=== PATIENT | female | born 1950 | race American Indian/Alaskan Native ===

== ENCOUNTER 2019-08-09 05:21 | Emergency (ER) | payer MEDICARE ==
--- NOTE | 2019-08-09 05:57 | Cat Scan Report ---
CT HEAD WITHOUT CONTRAST INDICATION / CLINICAL INFORMATION: STROKE PROTOCOL!!! Difficulty speaking, weakness.. TECHNIQUE: All CT scans at this location are performed using CT dose reduction for ALARA by means of automated e xposure control. COMPARISON: None available. FINDINGS: HEMORRHAGE: There is a left thalamic hematoma measuring 2.3 x 2.0 x 2.4 cm with mild surrounding jasmyne a. Tiny punctate hyperdensity in the subcortical white matter of the right parietal lobe as seen on a xial series 2 image 17. EXTRA-AXIAL SPACES: Normal in size and morphology for the patient's age. VENTRICULAR SYSTEM: Normal in size and morphology for the patient's age. CEREBRAL PARENCHYMA: Extensive white matter hypodensities likely relate to microangiopathy. MIDLINE SHIFT OR HERNIATION: Minimal 3 mm [id number] shift of the midline adjacent to the left dre lamic hematoma. CEREBELLUM / BRAINSTEM: No significant abnormality. ORBITS: Normal as visualized. SOFT TISSUES of HEAD: No significant abnormality. CALVARIUM: No significant abnormality. PARANASAL SINUSES / MASTOID AIR CELLS: Normal as visualized. ADDITIONAL FINDINGS: None. IMPRESSION: 1. 2.4 cm left thalamic hematoma which could represent hypertensive hemorrhage. 2. Tiny punctate hyperdensity in the subcortical white matter of the right parietal lobe could also r epresent tiny hematoma. CRITICAL RESULT: Time of Discovery (STORAGE BATTERY INSPECTOR/CDT): 4:50 AM Time of Communication (STORAGE BATTERY INSPECTOR/CDT): 4:52 AM Licensed Practitioner Receiving Report: Dr. Garcia in the ED Read Back Performed: Yes. Signer Name: Wanda Thorpe MD Signed: 08/09/2019 5:52 AM Workstation Name: [id number]
--- NOTE | 2019-08-09 05:58 | Emergency Department Report ---
ED Neuro Deficit HPI - General Stated Complaint: POSS STROKE - History of Present Illness Initial Comments: [facility] Date of Service: 08/09/2019 05:18:38 Impression: L hemispheric ICH Comments/Sign-Out: 69 yo W on coumadin last known well at 3:00 when they went to bed who the found on the floor after hearing a loud noise from noise when she got up p/w R hemiparesis and R facial droop and slurred speech. Mechanism of Stroke: ICH Metrics: Last Known Well: 08/09/2019 04:40:00 [employer] Notification Time: 08/09/2019 05:18:38 Arrival Time: 08/09/2019 05:23:04 Stamp Time: 08/09/2019 05:18:38 Time First Login Attempt: 08/09/2019 05:22:00 Video Start Time: 08/09/2019 05:22:00 Symptoms: R sided weakness NIHSS Start Assessment Time: 08/09/2019 05:38:00 Patient is not a candidate for tPA. Patient was not deemed candidate for tPA thrombolytics because of AC and ICH. Video End Time: 08/09/2019 05:48:46 CT head was reviewed. Clinical Presentation is not Suggestive of Large Vessel Occlusive Disease ED Physician notified of diagnostic impression and management plan on 08/09/2019 05:48:45 Our recommendations are outlined below. Recommendations: Activate Stroke Protocol Admission/Order Set Stroke/Telemetry Floor Neuro Checks Bedside Swallow Eval DVT Prophylaxis IV Fluids, Normal Saline Head of Bed Below 30 Degrees Euglycemia and Avoid Hyperthermia (PRN Acetaminophen) Hold Antithrombotics for Now BP lowering Warfarin reversal STAT Nsx consult Routine Consultation with Inhouse Neurology for Follow up Care Sign Out: Discussed with Emergency Department Provider History of Present Illness: Patient is a 69 year old Female. Patient was brought by EMS for symptoms of R sided weakness 69 yo W on coumadin last known well at 3:00 when they went to bed who the found on the floor after hearing a loud noise from noise when she got up p/w R hemiparesis and R facial droop and slurred speech. CT head was reviewed. There is history of hemorrhagic complications or intracranial hemorrhage. There is history of Recent Anticoagulants. Examination: BP(229/101), 1A: Level of Consciousness - Alert; keenly responsive + 0 1B: Ask Month and Age - Could Not Answer Either Question Correctly + 2 1C: Blink Eyes & Squeeze Hands - Performs 1 Task + 1 2: Test Horizontal Extraocular Movements - Normal + 0 3: Test Visual Sales - Complete Hemianopia + 2 4: Test Facial Palsy (Use Grimace if Obtunded) - Partial paralysis (lower face) + 2 5A: Test Left Arm Motor Drift - No Drift for 10 Seconds + 0 5B: Test Right Arm Motor Drift - No Effort Against [place] + 3 6A: Test Left Leg Motor Drift - No Drift for 5 Seconds + 0 6B: Test Right Leg Motor Drift - Some Effort Against [place] + 2 7: Test Limb Ataxia (FNF/Heel-Limon) - No Ataxia + 0 8: Test Sensation - Mild-Moderate Loss: Can Sense Being Touched + 1 9: Test Language/Aphasia - Mild-Moderate Aphasia: Some Obvious Changes, Without Significant Limitation + 1 10: Test Dysarthria - Mild-Moderate Dysarthria: Slurring but can be understood + 1 11: Test Extinction/Inattention - No abnormality + 0 NIHSS Score: 15 Patient was informed the Neurology Consult would happen via TeleHealth consult by way of interactive audio and video telecommunications and consented to receiving care in this manner. Due to the immediate potential for life-threatening deterioration due to underlying acute neurologic illness, I spent 35 minutes providing critical care. This time includes time for face to face visit via telemedicine, review of medical records, imaging studies and discussion of findings with providers, the patient and/or family. Dr Edna Hester [facility] Case [id number] - Related Data Allergies/Adverse Reactions: Allergies Allergy/AdvReac Type Severity Reaction Status Date / Time Unable to Assess Allergy Verified 08/09/19 05:52 ED Review of Systems ROS: Stated complaint: POSS STROKE Other details as noted in HPI ED Neuro Physical Exam - General Suspected Stroke: Yes - NIHSS Assessment Interval: Baseline 1a. Level of Consciousness: alert/keenly responsive 1b. LOC Questions: answers no questions correctly 1c. LOC Commands: performs 1 task correctly 2. Best Gaze: normal 3. Visual: complete hemianopia 4. Facial Palsy: partial paralysis 5b. Motor Arm Right: no movement 5a. Motor Arm Left: no drift 6a. Motor Leg Left: no drift 6b. Motor Leg Right: some gravity effort 7. Limb Ataxia: absent 8. Sensory: mild/moderate sensory loss 9. Best Language: mild/moderate aphasia 10. Dysarthria: mild/moderate dysarthria 11. Extinction/Inattention: no abnormality Total Score: 16 Stroke Severity: Moderate to Severe Stroke Critical care attestation.: If time is entered above; I have spent that time in minutes in the direct care of this critically ill patient, excluding procedure time. ED Disposition Clinical Impression: Stroke (cerebrum) Disposition: OP ADMIT IP TO THIS HOSP Is pt being admited?: Yes Does the pt Need Aspirin: No Condition: Stable Referrals: PRIMARY CAREMD [Primary Care Provider] - 3-5 Days
[2019-08-09] MEDS ORDERED: niCARdipine 50 MG in SODIUM CHLORIDE 0.9% 250ML 230 ML IV SCH (06:00)
[2019-08-09 06:11] LABS: Basophils # (Auto) 0.1 K/mm3 (0.0-0.1); Basophils % (Auto) 1.9 % (0.0-1.8); Eosinophils # (Auto) 0.1 K/mm3 (0.0-0.4); Eosinophils % (Auto) 2.1 % (0.0-4.3); Hematocrit 38.3 % (30.3-42.9); Hemoglobin 13.2 gm/dl (10.1-14.3); Lymphocytes # (Auto) 2.1 K/mm3 (1.2-5.4); Lymphocytes % (Auto) 37.4 % (13.4-35.0); Mean Corpuscular HGB Conc 35 % (30-34); Mean Corpuscular Volume 86 fl (79-97); Monocytes # (Auto) 0.5 K/mm3 (0.0-0.8); Monocytes % (Auto) 8.1 % (0.0-7.3); Platelet Count 242 K/mm3 (140-440); Red Blood Count 4.48 M/mm3 (3.65-5.03); Red Cell Distribution Width 13.6 % (13.2-15.2)
--- NOTE | 2019-08-09 06:11 | Event Note ---
ED Screening Note Date of service: 08/09/19 Time: 06:06 ED Screening Note: 69-year-old female with history of hypertension, previous CVA with no residual deficits presents to ED with right-sided weakness. states they went to bed at 3 AM, patient was normal at that time. At around 4:30 AM heard patient fall. He went to check on her and she was on the floor, mumbling, not responding normally. EMS was called patient was found to have right-sided weakness. reports patient is currently on Coumadin because of her stroke. Patient is currently hypertensive, 220s/100s. Patient has weakness in the right arm and leg, right facial droop. GCS of 14. Patient seen and e xamined by tele-neurologist, NIH score of 15. Radiologist called, states CT Head shows left thalamic hemorrhage, 2.4 cm in size with minimal mass-effect and tiny right parietal hemorrhage. Patient is a [facility] patient. This initial assessment/diagnostic orders/clinical plan/treatment(s) is/are subject to change based on patients health status, clinical progression and re- assessment by fellow clinical providers in the ED. Further treatment and workup at subsequent clinical providers discretion. Patient/guardian urged not to elope from the ED as their condition may be serious if not clinically assessed and managed. Initial orders include: Stroke alert CT Head labs EKG Karlos newman
[2019-08-09 06:22] LABS: INR 2.32 (0.87-1.13)
[2019-08-09 06:23] LABS: Partial Thromboplastin Time 34.2 Sec. (24.2-36.6)
[2019-08-09 06:26] LABS: BUN/Creatinine Ratio 24; Blood Urea Nitrogen 19 mg/dL (7-17); Calcium 9.1 mg/dL (8.4-10.2); Hemolysis Index 13
[2019-08-09] MEDS ORDERED: PHYTONADIONE(ADULT ONLY) 10 MG in SODIUM CHLORIDE 0.9% 50 ML IV ONE (06:37)
[2019-08-09 06:42] LABS: Bilirubin,Urine NEG (Negative); Blood,Urine NEG (Negative); Color,Urine Colorless (Yellow); Urobilinogen,Urine < 2.0 mg/dL (<2.0)
[2019-08-09 06:56] LABS: Alanine Aminotransferase 10 units/L (7-56); Albumin 4.3 g/dL (3.9-5)
[2019-08-09 06:58] LABS: Bilirubin,Direct < 0.2 mg/dL (0-0.2)
--- NOTE | 2019-08-09 06:58 | XRay Report ---
CHEST 1 VIEW 08/09/2019 6:28 AM INDICATION / CLINICAL INFORMATION: hypertension. Right-sided weakness. COMPARISON: None available. FINDINGS: SUPPORT DEVICES: None. HEART / MEDIASTINUM: No significant abnormality. LUNGS / PLEURA: No significant pulmonary or pleural abnormality. No pneumothorax. ADDITIONAL FINDINGS: No significant additional findings. IMPRESSION: 1. No acute findings. Signer Name: Wanda Thorpe MD Signed: 08/09/2019 6:53 AM Workstation Name: [email or web address]
[2019-08-09] MEDS ORDERED: PROTHROMBIN HUMAN COMPLEX (PCC) PER 1 UNIT IV ONE (07:00)
--- NOTE | 2019-08-09 07:04 | Emergency Department Report ---
ED Neuro Deficit HPI - General Chief Complaint: Neuro Symptoms/Deficit Stated Complaint: POSS STROKE Time Seen by Provider: 08/09/19 06:19 Source: EMS Mode of arrival: Stretcher Limitations: Altered Mental Status - History of Present Illness Initial Comments: This is an unfortunate 69-year-old female who is on Coumadin and has a history of hypertension. I spoke to her . He is not aware of her compliance with her medication per se. He knows that she is on Coumadin. He states this is because she had a stroke in 2014. He denies knowledge of atrial fibrillation, DVT or pulmonary embolism. I am not sure her exact indication for anticoagulation. In any case she was at her ordinary state of health yesterday. She had a intracranial hemorrhage during the night. I am uncertain as to the exact time. The did find her on the floor with a katina-parous cyst. History per teleneuro: Comments/Sign-Out: 69 yo W on coumadin last known well at 3:00 when they went to bed who the found on the floor after hearing a loud noise from noise when she got up p/w R hemiparesis and R facial droop and slurred speech. Exam per teleneuro: Examination: BP(229/101), 1A: Level of Consciousness - Alert; keenly responsive + 0 1B: Ask Month and Age - Could Not Answer Either Question Correctly + 2 1C: Blink Eyes & Squeeze Hands - Performs 1 Task + 1 2: Test Horizontal Extraocular Movements - Normal + 0 3: Test Visual Sales - Complete Hemianopia + 2 4: Test Facial Palsy (Use Grimace if Obtunded) - Partial paralysis (lower face) + 2 5A: Test Left Arm Motor Drift - No Drift for 10 Seconds + 0 5B: Test Right Arm Motor Drift - No Effort Against [place] + 3 6A: Test Left Leg Motor Drift - No Drift for 5 Seconds + 0 6B: Test Right Leg Motor Drift - Some Effort Against [place] + 2 7: Test Limb Ataxia (FNF/Heel-Limon) - No Ataxia + 0 8: Test Sensation - Mild-Moderate Loss: Can Sense Being Touched + 1 9: Test Language/Aphasia - Mild-Moderate Aphasia: Some Obvious Changes, Without Significant Limitation + 1 10: Test Dysarthria - Mild-Moderate Dysarthria: Slurring but can be understood + 1 11: Test Extinction/Inattention - No abnormality + 0 NIHSS Score: 15 -: During the night Location: right face, right arm, right leg Presenting Symptoms: Present: Weak/Paralyzed One Side History of same: No Place: home Associated Symptoms: denies other symptoms (Has been unaware of any intercurrent problem) - Related Data Allergies/Adverse Reactions: Allergies Allergy/AdvReac Type Severity Reaction Status Date / Time Unable to Assess Allergy Verified 08/09/19 05:52 ED Review of Systems ROS: Stated complaint: POSS STROKE Other details as noted in HPI Comment: Unobtainable due to pts medical conditions ED Past Medical Hx - Past Medical History Hx Hypertension: Yes Hx CVA: Yes Hx Diabetes: Yes Hx GERD: Yes - Social History Smoking Status: Unknown if ever smoked Substance Use Type: None ED Neuro Physical Exam - General Limitations: Altered Mental Status General appearance: alert (Reasonably alert) Suspected Stroke: Yes - Head Head exam: Present: atraumatic - Eye Eye exam: Present: normal appearance - ENT ENT exam: Present: other (Facial asymmetry apparent) - Neck Neck exam: Absent: tenderness, meningismus - Respiratory Respiratory exam: Present: normal lung sounds bilaterally. Absent: respiratory distress - Cardiovascular Cardiovascular Exam: Present: regular rate, normal rhythm, normal heart sounds. Absent: systolic murmur, diastolic murmur - GI/Abdominal GI/Abdominal exam: Absent: soft, distended, tenderness - Extremities Exam Extremities exam: Present: normal inspection - Back Exam Back exam: Present: other (Did not view) - Neurological Exam Neurological exam: Present: altered, motor sensory deficit. Absent: CN II-XII intact - NIHSS Assessment Interval: Baseline 1a. Level of Consciousness: alert/keenly responsive 1b. LOC Questions: answers no questions correctly 1c. LOC Commands: performs 1 task correctly 2. Best Gaze: partial gaze palsy 3. Visual: complete hemianopia 4. Facial Palsy: partial paralysis 5b. Motor Arm Right: no gravity effort 5a. Motor Arm Left: no drift 6a. Motor Leg Left: no drift 6b. Motor Leg Right: no gravity effort 7. Limb Ataxia: absent 8. Sensory: mild/moderate sensory loss 9. Best Language: mild/moderate aphasia 10. Dysarthria: mild/moderate dysarthria 11. Extinction/Inattention: visual/tactile inattention Total Score: 18 Stroke Severity: Moderate to Severe Stroke - Psychiatric Psychiatric exam: Present: normal mood, flat affect - Skin Skin exam: Present: warm, dry, intact, normal color. Absent: rash ED Course Vital Signs 08/09/19 08/09/19 08/09/19 05:22 05:44 05:45 Temperature 97.6 F Pulse Rate Respiratory Rate Blood Pressure 229/101 O2 Sat by Pulse 96 97 Oximetry 08/09/19 08/09/19 08/09/19 06:01 06:15 06:31 Temperature Pulse Rate 63 62 70 Respiratory 14 12 12 Rate Blood Pressure 219/85 219/85 168/88 O2 Sat by Pulse 95 96 95 Oximetry - Reevaluation(s) Reevaluation #1: I discussed the need for K Centra and vitamin K with the pharmacist. She told me that they would send the medication to the emergency department stat. I spoke to the 's and apprised him of the situation, findings and transfer disposition. Dr. Garcia gave a report to [place]. Patient has been accepted by Adithya Antunez MD. She is stable for transfer. I informed the nurse to place the parameter for systolic blood pressure at 165 initially. Further blood pressure management per the neuro-steel box toe inserter. 08/09/19 07:11 08/09/19 07:12 - Lab Data Result diagrams: 08/09/19 05:54 08/09/19 05:54 Lab Results 08/09/19 08/09/19 08/09/19 Range/Units 05:54 05:54 05:54 WBC 5.6 (4.5-11.0) K/mm3 RBC 4.48 (3.65-5.03) M/mm3 Hgb 13.2 (10.1-14.3) gm/dl Hct 38.3 (30.3-42.9) % MCV 86 (79-97) fl MCH 30 (28-32) pg MCHC 35 H (30-34) % RDW 13.6 (13.2-15.2) % Plt Count 242 (140-440) K/mm3 Lymph % (Auto) 37.4 H (13.4-35.0) % [place] % (Auto) 8.1 H (0.0-7.3) % Eos % (Auto) 2.1 (0.0-4.3) % Baso % (Auto) 1.9 H (0.0-1.8) % Lymph # 2.1 (1.2-5.4) K/mm3 [place] # 0.5 (0.0-0.8) K/mm3 Eos # 0.1 (0.0-0.4) K/mm3 Baso # 0.1 (0.0-0.1) K/mm3 Seg Neutrophils % 50.5 (40.0-70.0) % Seg Neutrophils # 2.8 (1.8-7.7) K/mm3 PT 25.9 H (12.2-14.9) Sec. INR 2.32 H (0.87-1.13) APTT 34.2 (24.2-36.6) Sec. Sodium 142 (137-145) mmol/L Potassium 3.8 (3.6-5.0) mmol/L Chloride 104.6 (98-107) mmol/L Carbon Dioxide 22 (22-30) mmol/L Anion Gap 19 mmol/L BUN 19 H (7-17) mg/dL Creatinine 0.8 (0.7-1.2) mg/dL Estimated GFR > 60 ml/min BUN/Creatinine Ratio 24 % Glucose 111 H (65-100) mg/dL POC Glucose (70-105) Calcium 9.1 (8.4-10.2) mg/dL Total Bilirubin (0.1-1.2) mg/dL Direct Bilirubin (0-0.2) mg/dL Indirect Bilirubin mg/dL AST (5-40) units/L ALT (7-56) units/L Alkaline Phosphatase (35-129) units/L Troponin T < 0.010 (0.00-0.029) ng/mL NT-Pro-B Natriuret Pep (0-900) pg/mL Total Protein (6.3-8.2) g/dL Albumin (3.9-5) g/dL Albumin/Globulin Ratio % Urine Color (Yellow) Urine Turbidity (Clear) Urine pH (5.0-7.0) Ur Specific [place] (1.003-1.030) Urine Protein (Negative) mg/dL Urine Glucose (UA) (Negative) mg/dL Urine Ketones (Negative) mg/dL Urine Blood (Negative) Urine Nitrite (Negative) Urine Bilirubin (Negative) Urine Urobilinogen (<2.0) mg/dL Ur Leukocyte Esterase (Negative) Urine WBC (Auto) (0.0-6.0) /HPF Urine RBC (Auto) (0.0-6.0) /HPF U Epithel Cells (Auto) (0-13.0) /HPF 08/09/19 08/09/19 08/09/19 Range/Units 05:54 06:15 06:28 WBC (4.5-11.0) K/mm3 RBC (3.65-5.03) M/mm3 Hgb (10.1-14.3) gm/dl Hct (30.3-42.9) % MCV (79-97) fl MCH (28-32) pg MCHC (30-34) % RDW (13.2-15.2) % Plt Count (140-440) K/mm3 Lymph % (Auto) (13.4-35.0) % [place] % (Auto) (0.0-7.3) % Eos % (Auto) (0.0-4.3) % Baso % (Auto) (0.0-1.8) % Lymph # (1.2-5.4) K/mm3 [place] # (0.0-0.8) K/mm3 Eos # (0.0-0.4) K/mm3 Baso # (0.0-0.1) K/mm3 Seg Neutrophils % (40.0-70.0) % Seg Neutrophils # (1.8-7.7) K/mm3 PT (12.2-14.9) Sec. INR (0.87-1.13) APTT (24.2-36.6) Sec. Sodium (137-145) mmol/L Potassium (3.6-5.0) mmol/L Chloride (98-107) mmol/L Carbon Dioxide (22-30) mmol/L Anion Gap mmol/L BUN (7-17) mg/dL Creatinine (0.7-1.2) mg/dL Estimated GFR ml/min BUN/Creatinine Ratio % Glucose (65-100) mg/dL POC Glucose 94 (70-105) Calcium (8.4-10.2) mg/dL Total Bilirubin 0.30 (0.1-1.2) mg/dL Direct Bilirubin < 0.2 (0-0.2) mg/dL Indirect Bilirubin 0.1 mg/dL AST 18 (5-40) units/L ALT 10 (7-56) units/L Alkaline Phosphatase 47 (35-129) units/L Troponin T (0.00-0.029) ng/mL NT-Pro-B Natriuret Pep 74.22 (0-900) pg/mL Total Protein 8.1 (6.3-8.2) g/dL Albumin 4.3 (3.9-5) g/dL Albumin/Globulin Ratio 1.1 % Urine Color Colorless (Yellow) Urine Turbidity Clear (Clear) Urine pH 7.0 (5.0-7.0) Ur Specific [place] 1.008 (1.003-1.030) Urine Protein 30 mg/dl (Negative) mg/dL Urine Glucose (UA) Neg (Negative) mg/dL Urine Ketones Neg (Negative) mg/dL Urine Blood Neg (Negative) Urine Nitrite Neg (Negative) Urine Bilirubin Neg (Negative) Urine Urobilinogen < 2.0 (<2.0) mg/dL Ur Leukocyte Esterase Tr (Negative) Urine WBC (Auto) 3.0 (0.0-6.0) /HPF Urine RBC (Auto) 3.0 (0.0-6.0) /HPF U Epithel Cells (Auto) < 1.0 (0-13.0) /HPF - EKG Data -: EKG Interpreted by Me EKG shows normal: sinus rhythm, axis, intervals, QRS complexes, ST-T waves Rate: bradycardia Interpretation: no acute changes - Radiology Data Radiology results: report reviewed (NAF) - Thrombolytic Inclusion/Exclusion Thrombolytic Exclusion Criteria: Onset of Symptoms Unknown (ICH) Critical Care Time: Yes Critical care time in (mins) excluding proc time.: 40 Critical care attestation.: If time is entered above; I have spent that time in minutes in the direct care of this critically ill patient, excluding procedure time. ED Disposition Clinical Impression: Thalamic hemorrhage with stroke Stroke (cerebrum) Qualifiers: CVA mechanism: other Qualified Code(s): I63.89 - Other cerebral infarction Disposition: OP ADMIT IP TO THIS HOSP Is pt being admited?: No Does the pt Need Aspirin: No Condition: Stable Referrals: PRIMARY CARE, [Primary Care Provider] - 3-5 Days Time of Disposition: 07:15
[2019-08-09 07:24] VITALS: BP 140/73
== END 2019-08-09 08:11 | disposition admitted as inpatient to this hospital (09) ==
LOC: ED 05:21
DX: I63.89 Other cerebral infarction (principal); G81.91 Hemiplegia, unspecified affecting right dominant side; R29.810 Facial weakness; R47.81 Slurred speech; K21.9 Gastro-esophageal reflux disease without esophagitis; I68.8 Other cerebrovascular disorders in diseases classified elsewhere; T45.511A Poisoning by anticoagulants, accidental (unintentional), initial encounter; I10 Essential (primary) hypertension; E11.9 Type 2 diabetes mellitus without complications
CPT/HCPCS: 36415; 70450; 71045; 80048; 80076; 81001; 82962; 83880; 84484; 85025; 85610; 85730; 93005; 93010; 96365; 96366; 96368; 99291; J3430; J7050; J7195; 96367